=== PATIENT | male | born 1960 | race African-American/Black ===

== ENCOUNTER 2016-06-04 14:54 | Inpatient (IN) | payer OTHER ==
[2016-06-04 16:29] VITALS: BMI 23.3
--- NOTE | 2016-06-04 17:19 | HP ---
CIWA Score - CIWA Score Nausea/Vomitin-Mild Nausea/No Vomiting Muscle Tremors: 4-Moderate,w/Arms Extend Anxiety: 4-Mod. Anxious/Guarded Agitation: 4-Moderately Restless Paroxysmal Sweats: 3 Orientation: 0-Oriented Tacttile Disturbances: 0-None Auditory Disturbances: 0-None Visual Disturbances: 0-None Headache: 0-None Present CIWA-Ar Total Score: 16 Admission ROS S - HPI Chief Complaint: Intoxicated Allergies/Adverse Reactions: Allergies Allergy/AdvReac Type Severity Reaction Status Date / Time No Known Allergies Allergy Verified 06/04/16 16:48 History of Present Illness: 55 y/o man with a long hx of alcoholism is admitted for detox. Pt. is intoxicated [id number],he's restless,talkative & agitated. Exam Limitations: Intoxication - Ebola screening Have you traveled outside of the country in the last 21 days: No Have you had contact with anyone from an Ebola affected area: No Have you been sick,other than usual withdrawal symptoms: No - Review of Systems Constitutional: Diaphoresis EENT: reports: No Symptoms Reported Respiratory: reports: No Symptoms reported Cardiac: reports: No Symptoms Reported GI: reports: Nausea, Abdominal cramping : reports: No Symptoms Reported Musculoskeletal: reports: No Symptoms Reported Integumentary: reports: Sweating Neuro: reports: Seizure (Many years ago?), Tremors Endocrine: reports: No Symptoms Reported Hematology: reports: No Symptoms Reported Psychiatric: reports: No Sypmtoms Reported Other Systems: Reviewed and Negative Patient History - Patient Medical History Hx Anemia: No Hx Asthma: No Hx Chronic Obstructive Pulmonary Disease (COPD): No Hx Cancer: No Hx Cardiac Disorders: No Hx Congestive Heart Failure: No Hx Hypertension: Yes Hx Hypercholesterolemia: No Hx Pacemaker: No HX Cerebrovascular Accident: No Hx Seizures: Yes (alcohol related-last episode was 20 years ago) Hx Dementia: No Hx Diabetes: No Hx Gastrointestinal Disorders: No Hx Liver Disease: No Hx Genitourinary Disorders: No Hx Sexually Transmitted Disorders: Yes (gonorrhea) Hx Renal Disease (ESRD): No Hx Thyroid Disease: No Hx Human Immunodeficiency Virus (HIV): No Hx Hepatitis C: No Hx Depression: Yes Hx Suicide Attempt: No Hx Bipolar Disorder: No Hx Schizophrenia: No - Patient Surgical History Past Surgical History: No Hx Neurologic Surgery: No Hx Cataract Extraction: No Hx Cardiac Surgery: No Hx Lung Surgery: No Hx Breast Surgery: No Hx Breast Biopsy: No Hx Abdominal Surgery: No Hx Appendectomy: No Hx Cholecystectomy: No Hx Genitourinary Surgery: No Hx Section: No Hx Orthopedic Surgery: No Anesthesia Reaction: No - PPD History Previous Implant?: Yes Documented Results: Positive w/o proof PPD to be Administered?: No - Smoking Cessation Smoking history: Current every day smoker Have you smoked in the past 12 months: Yes Aproximately how many cigarettes per day: 10 Cigars Per Day: 0 Hx Chewing Tobacco Use: No Initiated information on smoking cessation: Yes 'Breaking Loose' booklet given: 06/04/16 - Substance & Tx. History Hx Alcohol Use: Yes Hx Substance Use: Yes Substance Use Type: Alcohol, Marijuana Hx Substance Use Treatment: Yes (Detox) - Substances Abused Alcohol-beer/vodka Route: Oral Frequency: Daily Amount used: 1 (40 oz.)/1 1/2 pts. Age of first use: 14 Date of Last Use: 06/04/16 Marijuana Route: Smoking Frequency: Daily Amount used: $5 Age of first use: 14 Date of Last Use: 06/03/16 Family Disease History - Family Disease History Family Disease History: Other: Mother (alcohol) Admission Physical Exam [facility] - Vital Signs Vital Signs: Vital Signs - 24 hr 06/04/16 16:27 Temperature 95.3 F L Pulse Rate 105 H Respiratory 18 Rate Blood Pressure 152/96 - Physical General Appearance: Yes: Alcohol on Breath, Intoxicated, Tremorous, Irritable, Sweating, Anxious HEENTM: Yes: Within Normal Limits Respiratory: Yes: Chest Non-Tender, Lungs Clear, Normal Breath Sounds Neck: Yes: Supple Breast: Yes: Breast Exam Deferred Cardiology: Yes: Regular Rhythm, Regular Rate, S1, S2 Abdominal: Yes: Normal Bowel Sounds, Non Tender, Soft Genitourinary: Yes: Within Normal Limits Back: Yes: Within Normal Limits Musculoskeletal: Yes: Within Normal Limits Extremities: Yes: Tremors Neurological: Yes: Fully Oriented, Alert Integumentary: Yes: Diaphoresis Lymphatic: Yes: Within Normal Limits - Diagnostic (1) Alcohol dependence with uncomplicated withdrawal Current Visit: Yes Status: Acute (2) HTN (hypertension) Current Visit: Yes Status: Acute Qualifiers: Hypertension type: essential hypertension Qualified Code(s): I10 - Essential (primary) hypertension Cleared for Admission [facility] - Detox or Rehab [facility] Level of Care: Medically Managed Detox Regimen/Protocol: Librium [facility] Breath Alcohol Content Breath Alcohol Content: 0.342 Urine Drug Screen - Results Urine Drug Screen Results: THC-Marijuana
[2016-06-04] MEDS ORDERED: IBUPROFEN 400 MG TABLET (FP) PO PRN (17:28)
[2016-06-04] MEDS ORDERED: P-EPHED 60MG/TRIPROLIDI 2.5MG TABLET PO PRN (17:28)
[2016-06-04] MEDS ORDERED: ACETAMINOPHEN 325 MG TABLET (FP) PO PRN (17:28)
[2016-06-04] MEDS ORDERED: chlordiazePOXIDE HCL 25 MG CAPSULE PO PRN (17:28)
[2016-06-04] MEDS ORDERED: MAGNESIUM CITRATE 300 ML BOTTLE PO PRN (17:28)
[2016-06-04] MEDS ORDERED: guaiFENesin/D-METHORPHAN HB 10 ML UNIT-DOSE CUPS PO PRN (17:28)
[2016-06-04] MEDS ORDERED: MENTHOL/PHENOL 1 EACH UD MM PRN (17:28)
[2016-06-04] MEDS ORDERED: hydrOXYzine PAMOATE 50 MG CAPSULE (FP) PO PRN (17:28)
[2016-06-04] MEDS ORDERED: MAG HYDROX/AL HYDROX/SIMETH 30 ML UNIT-DOSE CUP PO PRN (17:28)
[2016-06-04] MEDS ORDERED: NICOTINE POLACRILEX 2 MG GUM BC PRN (17:28)
[2016-06-04] MEDS ORDERED: MAGNESIUM HYDROX 2400MG/30ML ORAL SUSPENSION 30 ML CUP PO PRN (17:28)
[2016-06-04] MEDS ORDERED: LOPERAMIDE HCL 2 MG CAPSULE PO PRN (17:28)
[2016-06-04] MEDS ORDERED: chlordiazePOXIDE HCL 25 MG CAPSULE PO ONE (18:45)
[2016-06-04] MEDS: NICOTINE 21 MG/24 HOURS TOPICAL PATCH TD SCH (19:03)
[2016-06-04] MEDS: THIAMINE HCL 100 MG TABLET (FP) PO SCH (22:16)
[2016-06-04] MEDS: chlordiazePOXIDE HCL 25 MG CAPSULE PO SCH (22:17)
[2016-06-04] MEDS: LISINOPRIL 20 MG TABLET (FP) PO SCH (22:17)
[2016-06-04] MEDS: diphenhydrAMINE HCL 50 MG CAPSULE PO PRN (22:18)
[2016-06-05] MEDS: chlordiazePOXIDE HCL 25 MG CAPSULE PO SCH ×4 (05:53→22:19)
[2016-06-05] MEDS: PRENATAL VITAMINS W/ FOLIC ACID TABLET (FP) PO SCH (10:28)
[2016-06-05] MEDS: LISINOPRIL 20 MG TABLET (FP) PO SCH ×2 (10:28→22:19)
[2016-06-05] MEDS: NICOTINE 21 MG/24 HOURS TOPICAL PATCH TD SCH (10:30)
--- NOTE | 2016-06-05 10:39 | CONSULT ---
[facility] Psychiatric Consult - Data Date of interview: 06/05/16 Admission source: [facility] Identifying data: This is 55 years old male with psychiatric hospitalization history intoxicated with: Alcohol, Cannabis and Nicotine Substance Abuse History: - Smoking Cessation. Smoking history: Current every day smoker. Have you smoked in the past 12 months: Yes. Aproximately how many cigarettes per day: 10. Cigars Per Day: 0. Hx Chewing Tobacco Use: No. Initiated information on smoking cessation: Yes. 'Breaking Loose' booklet given : 06/04/16. - Substance & Tx. History. Hx Alcohol Use: Yes. Hx Substance Use : Yes. Substance Use Type: Alcohol, Marijuana. Hx Substance Use Treatment: Yes (Detox). - Substances Abused. Alcohol-beer/vodka. Route: Oral. Frequency: Daily. Amount used: 1 (40 oz.)/1 1/2 pts. Age of first use: 14. Date of Last Use: 06/04/16. Marijuana. Route: Smoking. Frequency: Daily. Amount used: $5. Age of first use: 14. Date of Last Use: 06/03/16 Medical History: HTN, Syncope history, Seizure history Psychiatric History: Patient reprots history of depression and anxiety, reports most recent admission for safety on 2015 at [facility] for safety, reports no medicatopns taking prior to admission Physical/Sexual Abuse/Trauma History: Denies Additional Comment: Observation. Detox Unit Care Protocol Mental Status Exam - Mental Status Exam Alert and Oriented to: Person Cognitive Function: Fair Patient Appearance: Unkempt Mood: Sad Affect: Flat Patient Behavior: Sedated Speech Pattern: Delayed Voice Loudness: Mildly Soft/Quiet Thought Process: Circumstantial Thought Disorder: Being Controlled Hallucinations: Denies Suicidal Ideation: Denies Homicidal Ideation: Denies Insight/Judgement: Fair Sleep: Difficulty falling asleep Appetite: Fair Muscle strength/Tone: Mild Hypotonicity Gait/Station: Shuffling Additional Comments: Observation. Detox Unit Care Protocol Psychiatric Findings - Problem List ([place] 1, 2,3) (1) Alcohol dependence with uncomplicated withdrawal Current Visit: Yes Status: Acute (2) Alcohol dependence Current Visit: No Status: Active (3) cannabis abused Current Visit: No Status: Active (4) Nicotine dependence Current Visit: Yes Status: Acute (5) Drug-induced mood disorder Current Visit: Yes Status: Acute - Initial Treatment Plan Initial Treatment Plan: Observation. Detox Unit Care Protocol
[2016-06-05 10:49] LABS: MCH 32.7 pg (25.7-33.7); MCHC 33.6 g/dl (32.0-35.9); MEAN CELL VOLUME 97.1 fl (80-96); MEAN PLT VOLUME 8.5 fl (7.5-11.1); PLATELET COUNT 124 K/MM3 (134-434); RDW 13.9 % (11.9-15.9); WHITE BLOOD COUNT 6.5 K/mm3 (4.0-10.0)
[2016-06-05 10:53] LABS: ALBUMIN 3.4 g/dl (3.4-5.0); ANION GAP 9 (8-16); BILIRUBIN,TOTAL 0.5 mg/dL (0.2-1.0); CALCIUM 8.6 mg/dL (8.5-10.1); CO2 29 mmol/L (21-32); COCKROFT - GAULT 84.27; CREATININE 0.9 mg/dL (0.7-1.3); GLUCOSE,RANDOM 72 mg/dL (74-106); SGOT/AST 76 U/L (15-37); SGPT/ALT 50 U/L (12-78)
[2016-06-05 10:55] LABS: ALK PHOS 116 U/L (45-117); TOT PROT 7.1 g/dl (6.4-8.2)
--- NOTE | 2016-06-05 12:16 | PN ---
S CIWA - CIWA Score Nausea/Vomitin Muscle Tremors: 4-Moderate,w/Arms Extend Anxiety: 2 Agitation: 2 Paroxysmal Sweats: 3 Orientation: 0-Oriented Tacttile Disturbances: 2-Mild Itch/Numbness/Burn Auditory Disturbances: 0-None Visual Disturbances: 1-Very Mild Sensitivity Headache: 0-None Present CIWA-Ar Total Score: 16 S Progress Note (SOAP) Subjective: Fatigue, Tremors, Interrupted sleep, Sweating. Objective: PT. A & O X 3. 06/05/16 12:13 Vital Signs Temperature 97.6 F 06/05/16 09:45 Pulse Rate 81 06/05/16 09:45 Respiratory Rate 18 06/05/16 09:45 Blood Pressure 141/91 06/05/16 09:45 O2 Sat by Pulse Oximetry (%) Laboratory Last Values WBC 6.5 K/mm3 (4.0-10.0) D 06/05/16 07:00 RBC 3.61 M/mm3 (4.00-5.60) L 06/05/16 07:00 Hgb 11.8 GM/dL (11.7-16.9) 06/05/16 07:00 Hct 35.0 % (35.4-49) L 06/05/16 07:00 MCV 97.1 fl (80-96) H 06/05/16 07:00 MCHC 33.6 g/dl (32.0-35.9) 06/05/16 07:00 RDW 13.9 % (11.9-15.9) 06/05/16 07:00 Plt Count 124 K/MM3 (134-434) L D 06/05/16 07:00 MPV 8.5 fl (7.5-11.1) 06/05/16 07:00 Sodium 146 mmol/L (136-145) H 06/05/16 07:00 Potassium 4.0 mmol/L (3.5-5.1) 06/05/16 07:00 Chloride 108 mmol/L (98-107) H 06/05/16 07:00 Carbon Dioxide 29 mmol/L (21-32) 06/05/16 07:00 Anion Gap 9 (8-16) 06/05/16 07:00 BUN 11 mg/dL (7-18) D 06/05/16 07:00 Creatinine 0.9 mg/dL (0.7-1.3) D 06/05/16 07:00 Creat Clearance w eGFR > 60 (>60) 06/05/16 07:00 Random Glucose 72 mg/dL (74-106) L 06/05/16 07:00 Calcium 8.6 mg/dL (8.5-10.1) 06/05/16 07:00 Total Bilirubin 0.5 mg/dL (0.2-1.0) 06/05/16 07:00 AST 76 U/L (15-37) H 06/05/16 07:00 ALT 50 U/L (12-78) D 06/05/16 07:00 Alkaline Phosphatase 116 U/L (45-117) D 06/05/16 07:00 Total Protein 7.1 g/dl (6.4-8.2) 06/05/16 07:00 Albumin 3.4 g/dl (3.4-5.0) 06/05/16 07:00 LABS NOTED. Assessment: 06/05/16 12:14 WITHDRAWAL SYMPTOMS. Plan: CONTINUE DETOX. PATIENT RECEIVING MVI AND THIAMINE SUPPLEMENTS WHILE UNDERGOING DETOX. ADVISED PATIENT TO FOLLOW-UP WITH PROJECT MANAGER/TEAM COACH / REHAB MEDICAL PROVIDER AFTER DISCHARGE FROM DETOX FOR GENERAL MEDICAL ASSESSMENT AND FOR ABNORMAL ADMISSION LAB VALUES.
--- NOTE | 2016-06-05 12:32 | EKG ---
Test Reason : Blood Pressure : / mmHG Vent. Rate : 087 BPM Atrial Rate : 087 BPM P-R Int : 238 ms QRS Dur : 100 ms QT Int : 374 ms P-R-T Axes : 065 075 033 degrees QTc Int : 450 ms SINUS RHYTHM WITH 1ST DEGREE A-V BLOCK POSSIBLE LEFT ATRIAL ENLARGEMENT SEPTAL INFARCT , AGE UNDETERMINED ABNORMAL ECG NO PREVIOUS ECGS AVAILABLE Confirmed by REMY ALLEN MD ([id number]) on 06/05/2016 12:31:55 PM Referred By: Confirmed By:REMY ALLEN MD
[2016-06-05] MEDS: THIAMINE HCL 100 MG TABLET (FP) PO SCH (22:19)
[2016-06-05] MEDS: diphenhydrAMINE HCL 50 MG CAPSULE PO PRN (22:20)
[2016-06-05 22:59] LABS: URINE APPEARANCE CLEAR; URINE BILIRUBIN NEGATIVE (NEGATIVE); URINE BLOOD NEGATIVE (NEGATIVE); URINE COLOR LTYELLOW; URINE GLUCOSE (UA) NEGATIVE (NEGATIVE); URINE KETONE NEGATIVE (NEGATIVE); URINE LEUK ESTERASE NEGATIVE (NEGATIVE); URINE NITRITE NEGATIVE (NEGATIVE); URINE PROTEIN NEGATIVE (NEGATIVE); URINE UROBILINOGEN NEGATIVE E.U./dl (0.2-1.0)
[2016-06-06] MEDS: chlordiazePOXIDE HCL 25 MG CAPSULE PO SCH ×3 (06:00→17:22)
[2016-06-06] MEDS: NICOTINE 21 MG/24 HOURS TOPICAL PATCH TD SCH (10:16)
[2016-06-06] MEDS: LISINOPRIL 20 MG TABLET (FP) PO SCH ×2 (10:16→22:18)
[2016-06-06] MEDS: PRENATAL VITAMINS W/ FOLIC ACID TABLET (FP) PO SCH (10:16)
--- NOTE | 2016-06-06 11:16 | PN ---
[facility] CIWA - CIWA Score Nausea/Vomitin Muscle Tremors: 4-Moderate,w/Arms Extend Anxiety: 4-Mod. Anxious/Guarded Agitation: 4-Moderately Restless Paroxysmal Sweats: 3 Orientation: 0-Oriented Tacttile Disturbances: 0-None Auditory Disturbances: 0-None Visual Disturbances: 0-None Headache: 0-None Present CIWA-Ar Total Score: 18 B[facility] Progress Note (SOAP) Subjective: nausea, sweats, interrupted sleep, anxiety, tremors Objective: 06/06/16 11:15 Vital Signs - 8 hr 06/06/16 06/06/16 06/06/16 03:30 06:27 09:44 Temperature 98.1 F 97.3 F L Pulse Rate 65 64 Respiratory 18 18 18 Rate Blood Pressure 151/92 142/78 Laboratory Tests 06/05/16 06/05/16 06/05/16 07:00 07:00 07:00 WBC 6.5 D RBC 3.61 L Hgb 11.8 Hct 35.0 L MCV 97.1 H MCHC 33.6 RDW 13.9 Plt Count 124 L D MPV 8.5 Sodium 146 H Potassium 4.0 Chloride 108 H Carbon Dioxide 29 Anion Gap 9 BUN 11 D Creatinine 0.9 D Creat Clearance w eGFR > 60 Random Glucose 72 L Calcium 8.6 Total Bilirubin 0.5 AST 76 H ALT 50 D Alkaline Phosphatase 116 D Total Protein 7.1 Albumin 3.4 Urine Color Urine Appearance Urine pH Ur Specific [place] Urine Protein Urine Glucose (UA) Urine Ketones Urine Blood Urine Nitrite Urine Bilirubin Urine Urobilinogen Ur Leukocyte Esterase RPR Titer Nonreactive 06/05/16 16:00 WBC RBC Hgb Hct MCV MCHC RDW Plt Count MPV Sodium Potassium Chloride Carbon Dioxide Anion Gap BUN Creatinine Creat Clearance w eGFR Random Glucose Calcium Total Bilirubin AST ALT Alkaline Phosphatase Total Protein Albumin Urine Color Ltyellow Urine Appearance Clear Urine pH 7.0 D Ur Specific [place] 1.011 Urine Protein Negative Urine Glucose (UA) Negative Urine Ketones Negative Urine Blood Negative Urine Nitrite Negative Urine Bilirubin Negative Urine Urobilinogen Negative Ur Leukocyte Esterase Negative RPR Titer Assessment: 06/06/16 11:15 withdrawal sx Plan: cont detox
[2016-06-06] MEDS: chlordiazePOXIDE 5 MG CAPSULE PO SCH (22:18)
[2016-06-06] MEDS: THIAMINE HCL 100 MG TABLET (FP) PO SCH (22:18)
[2016-06-07] MEDS: chlordiazePOXIDE 5 MG CAPSULE PO SCH ×3 (05:22→17:52)
[2016-06-07] MEDS: PRENATAL VITAMINS W/ FOLIC ACID TABLET (FP) PO SCH (10:19)
[2016-06-07] MEDS: LISINOPRIL 20 MG TABLET (FP) PO SCH ×2 (10:19→22:16)
[2016-06-07] MEDS: NICOTINE 21 MG/24 HOURS TOPICAL PATCH TD SCH (10:20)
--- NOTE | 2016-06-07 17:01 | PN ---
[facility] Progress Note (SOAP) Subjective: Generalized weakness, sleep interruption Objective: 06/07/16 17:01 Vital Signs - 8 hr 06/07/16 06/07/16 09:34 14:17 Temperature 97.7 F 97.8 F Pulse Rate 64 80 Respiratory 18 20 Rate Blood Pressure 155/94 134/91 Laboratory Last Values WBC 6.5 K/mm3 (4.0-10.0) D 06/05/16 07:00 RBC 3.61 M/mm3 (4.00-5.60) L 06/05/16 07:00 Hgb 11.8 GM/dL (11.7-16.9) 06/05/16 07:00 Hct 35.0 % (35.4-49) L 06/05/16 07:00 MCV 97.1 fl (80-96) H 06/05/16 07:00 MCHC 33.6 g/dl (32.0-35.9) 06/05/16 07:00 RDW 13.9 % (11.9-15.9) 06/05/16 07:00 Plt Count 124 K/MM3 (134-434) L D 06/05/16 07:00 MPV 8.5 fl (7.5-11.1) 06/05/16 07:00 Sodium 146 mmol/L (136-145) H 06/05/16 07:00 Potassium 4.0 mmol/L (3.5-5.1) 06/05/16 07:00 Chloride 108 mmol/L (98-107) H 06/05/16 07:00 Carbon Dioxide 29 mmol/L (21-32) 06/05/16 07:00 Anion Gap 9 (8-16) 06/05/16 07:00 BUN 11 mg/dL (7-18) D 06/05/16 07:00 Creatinine 0.9 mg/dL (0.7-1.3) D 06/05/16 07:00 Creat Clearance w eGFR > 60 (>60) 06/05/16 07:00 Random Glucose 72 mg/dL (74-106) L 06/05/16 07:00 Calcium 8.6 mg/dL (8.5-10.1) 06/05/16 07:00 Total Bilirubin 0.5 mg/dL (0.2-1.0) 06/05/16 07:00 AST 76 U/L (15-37) H 06/05/16 07:00 ALT 50 U/L (12-78) D 06/05/16 07:00 Alkaline Phosphatase 116 U/L (45-117) D 06/05/16 07:00 Total Protein 7.1 g/dl (6.4-8.2) 06/05/16 07:00 Albumin 3.4 g/dl (3.4-5.0) 06/05/16 07:00 Urine Color Ltyellow 06/05/16 16:00 Urine Appearance Clear 06/05/16 16:00 Urine pH 7.0 (5.0-8.0) D 06/05/16 16:00 Ur Specific [place] 1.011 (1.001-1.035) 06/05/16 16:00 Urine Protein Negative (NEGATIVE) 06/05/16 16:00 Urine Glucose (UA) Negative (NEGATIVE) 06/05/16 16:00 Urine Ketones Negative (NEGATIVE) 06/05/16 16:00 Urine Blood Negative (NEGATIVE) 06/05/16 16:00 Urine Nitrite Negative (NEGATIVE) 06/05/16 16:00 Urine Bilirubin Negative (NEGATIVE) 06/05/16 16:00 Urine Urobilinogen Negative E.U./dl (0.2-1.0) 06/05/16 16:00 Ur Leukocyte Esterase Negative (NEGATIVE) 06/05/16 16:00 RPR Titer Nonreactive (NONREACTIVE) 06/05/16 07:00 labs noted Assessment: 06/07/16 17:01 withdrawal sx Plan: continue detox
[2016-06-07] MEDS: THIAMINE HCL 100 MG TABLET (FP) PO SCH (22:15)
[2016-06-07] MEDS: chlordiazePOXIDE HCL 10 MG CAPSULE PO SCH (22:15)
[2016-06-07] MEDS: diphenhydrAMINE HCL 50 MG CAPSULE PO PRN (22:16)
[2016-06-08] MEDS: chlordiazePOXIDE HCL 10 MG CAPSULE PO SCH ×2 (05:34→10:12)
[2016-06-08 09:09] VITALS: BP 133/92; PULSE 70; TEMP 96.3
[2016-06-08] MEDS: NICOTINE 21 MG/24 HOURS TOPICAL PATCH TD SCH (10:12)
[2016-06-08] MEDS: PRENATAL VITAMINS W/ FOLIC ACID TABLET (FP) PO SCH (10:12)
[2016-06-08] MEDS: LISINOPRIL 20 MG TABLET (FP) PO SCH (10:12)
--- NOTE | 2016-06-08 12:09 | DS ---
[facility] Detox Discharge Summary Admission Date: 06/04/16 Discharge Date: 06/08/16 - History Present History: Alcohol Dependence Pertinent Past History: HTN Alcohol related seizure disorder - Physical Exam Results Vital Signs: Vital Signs Temperature 96.3 F L 06/08/16 09:08 Pulse Rate 70 06/08/16 09:08 Respiratory Rate 18 06/08/16 09:08 Blood Pressure 133/92 06/08/16 09:08 O2 Sat by Pulse Oximetry (%) Pertinent Admission Physical Exam Findings: Withdrawal symptoms Laboratory Tests 06/05/16 06/05/16 06/05/16 07:00 07:00 07:00 WBC 6.5 D RBC 3.61 L Hgb 11.8 Hct 35.0 L MCV 97.1 H MCHC 33.6 RDW 13.9 Plt Count 124 L D MPV 8.5 Sodium 146 H Potassium 4.0 Chloride 108 H Carbon Dioxide 29 Anion Gap 9 BUN 11 D Creatinine 0.9 D Creat Clearance w eGFR > 60 Random Glucose 72 L Calcium 8.6 Total Bilirubin 0.5 AST 76 H ALT 50 D Alkaline Phosphatase 116 D Total Protein 7.1 Albumin 3.4 Urine Color Urine Appearance Urine pH Ur Specific [place] Urine Protein Urine Glucose (UA) Urine Ketones Urine Blood Urine Nitrite Urine Bilirubin Urine Urobilinogen Ur Leukocyte Esterase RPR Titer Nonreactive 06/05/16 16:00 WBC RBC Hgb Hct MCV MCHC RDW Plt Count MPV Sodium Potassium Chloride Carbon Dioxide Anion Gap BUN Creatinine Creat Clearance w eGFR Random Glucose Calcium Total Bilirubin AST ALT Alkaline Phosphatase Total Protein Albumin Urine Color Ltyellow Urine Appearance Clear Urine pH 7.0 D Ur Specific [place] 1.011 Urine Protein Negative Urine Glucose (UA) Negative Urine Ketones Negative Urine Blood Negative Urine Nitrite Negative Urine Bilirubin Negative Urine Urobilinogen Negative Ur Leukocyte Esterase Negative RPR Titer Labs noted - Treatment Hospital Course: Detox Protocol Followed, Detoxed Safely, Responded well, Discharged Condition Good - Medication Discharge Medications: Ambulatory Orders Lisinopril [Prinivil] 20 mg PO BID #0 tablet 05/09/12 Ibuprofen 400 mg PO BID PRN 12/01/12 - Diagnosis (1) Alcohol dependence with uncomplicated withdrawal Status: Acute (2) HTN (hypertension) Status: Chronic Qualifiers: Hypertension type: essential hypertension Qualified Code(s): I10 - Essential (primary) hypertension (3) Nicotine dependence Status: Chronic (4) Alcohol related seizure Status: Chronic - AMA Did Patient Leave Against Medical Advice: No
== END 2016-06-08 11:31 | disposition home or self-care (01) | DRG 775 ==
LOC: YASAS 14:54 → Y3N 18:20
PROVIDERS: ADMIT Internal Medicine; ATTEND Internal Medicine
PROC: HZ2ZZZZ Detoxification Services for Substance Abuse Treatment (ICD-10-PCS; principal; 2016-06-04)
DX: F10.230 Alcohol dependence with withdrawal, uncomplicated (principal); F12.20 Cannabis dependence, uncomplicated; F17.210 Nicotine dependence, cigarettes, uncomplicated; F19.24 Other psychoactive substance dependence with psychoactive substance-induced mood disorder; I10 Essential (primary) hypertension; Z86.69 Personal history of other diseases of the nervous system and sense organs; Z87.438 Personal history of other diseases of male genital organs
CPT/HCPCS: 36415; 71020-TC; 80053; 81003; 85027; 86593; 93005; 93010